=== PATIENT | male | born 2000 | race Caucasian/White ===

== ENCOUNTER 2023-06-09 08:11 | Emergency (ER) | payer MEDICAID ==
[~2023-06-09] VITALS: Ht 180.3 cm; Wt 97.5 kg
[2023-06-09 08:14] VITALS: BP 133/78; PULSE 85; RESP 18; TEMP 98.4; O2SAT 99
== END 2023-06-09 10:03 | disposition home or self-care (01) ==
LOC: MED 08:11
DX: M25.462 Effusion, left knee (principal); F12.90 Cannabis use, unspecified, uncomplicated; Z72.89 Other problems related to lifestyle; Z79.899 Other long term (current) drug therapy
CPT/HCPCS: 29505; 73562; 99283; Q0092